=== PATIENT | female | born 1945 | race Caucasian/White ===

== ENCOUNTER 2017-07-03 12:14 | Observation (INO) | payer MEDICARE, OTHER ==
[2017-07-03] VITALS (8 sets, daily range): BP systolic 114–155; BP diastolic 54–74; PULSE 67–80; RESP 14–19; TEMP 97.7–98.5; O2SAT 93–99
[~2017-07-03] VITALS: Ht 161.3 cm; Wt 90.9 kg
[~2017-07-03 12:14] MED LIST: ASPI325T PO; BISO5TAB5 PO; CITA10TA4 PO; ENOX40P SQ; LEVO75TA3 PO; LORTA5 PO; NEXI20CA PO; PREN0.01 PO; RANI150T PO; VITA100020 IM; Z.0.COMMODE-3:1; Z.0.CPM; Z.0.WALKERFRONT
[2017-07-03 13:17] LABS: AUTOMATED NEUTROPHIL # 12.5 TH/MM3 (1.8-7.7); BASOPHIL # 0.1 TH/MM3 (0-0.2); BASOPHIL % 0.6 % (0.0-2.0); EOSINOPHIL # 0.1 TH/MM3 (0-0.4); EOSINOPHIL % 0.6 % (0.0-4.0); HEMATOCRIT 39.9 % (35.0-46.0); HEMOGLOBIN 13.5 GM/DL (11.6-15.3); LYMPH % 11.8 % (9.0-44.0); LYMPHOCYTE # 1.8 TH/MM3 (1.0-4.8); MEAN CELL VOLUME 87.2 FL (80.0-100.0); MEAN CORPUSCULAR HEMOGLOBIN 29.6 PG (27.0-34.0); MEAN CORPUSCULAR HGB CONC 33.9 % (32.0-36.0); MONO % 4.8 % (0.0-8.0); MONOCYTE # 0.7 TH/MM3 (0-0.9); NEUT % 82.2 % (16.0-70.0); PLATELET COUNT 261 TH/MM3 (150-450); RED BLOOD COUNT 4.57 MIL/MM3 (4.00-5.30); WHITE BLOOD COUNT 15.2 TH/MM3 (4.0-11.0)
[2017-07-03] MEDS ORDERED: CITA20TA4 PO (13:17)
[2017-07-03] MEDS ORDERED: LEVO75TA3 PO (13:17)
[2017-07-03] MEDS ORDERED: BISO5TAB5 PO (13:17)
[2017-07-03] MEDS ORDERED: LIOT5TAB3 (13:17)
[2017-07-03] MEDS ORDERED: PRED10 PO (13:17)
[2017-07-03] MEDS ORDERED: MONT10TA4 PO (13:17)
[2017-07-03] MEDS ORDERED: CLON0.5T PO (13:17)
[2017-07-03] MEDS ORDERED: CIPR500T2 PO (13:17)
[2017-07-03] MEDS ORDERED: XARE15TA PO (13:17)
[2017-07-03 13:27] LABS: INTERNATIONAL NORMALIZED RATIO 1.4 RATIO
[2017-07-03] MEDS ORDERED: ASPIRIN 81 MG CHEW TAB CHEW ONE (13:30)
[2017-07-03 13:32] LABS: BICARBONATE 29.7 MEQ/L (21.0-32.0); BLOOD UREA NITROGEN 21 MG/DL (7-18); CALCIUM 9.1 MG/DL (8.5-10.1); CHLORIDE 103 MEQ/L (98-107); CREATININE 1.16 MG/DL (0.50-1.00); GLOMERULAR FILTRATION RATE 46 ML/MIN (>89); GLUCOSE,RANDOM 145 MG/DL (74-106); MAGNESIUM 2.3 MG/DL (1.5-2.5); SODIUM (NA) 138 MEQ/L (136-145)
[2017-07-03 13:33] LABS: PROTHROMBIN TIME - PATIENT 14.3 SEC (9.8-11.6)
[2017-07-03 13:36] LABS: TROPONIN I LESS THAN 0.02 NG/ML (0.02-0.05)
--- NOTE | 2017-07-03 13:37 | PD ---
HPI Chief Complaint: Chest Pain Time Seen by Provider: 13:16 Travel History International Travel<30 days: Yes Contact w/Intl Traveler<30days: Yes Name of Country Traveled to: [place] Traveled to known affect area: No History of Present Illness HPI Patient is a 72 year old female who comes in complaining of left sided chest pain. She says it started this morning around 3AM. She says she vomited and felt a sharp pain to the left side of her chest. She says the pain has eased somewhat, but is still present. She says she has never felt pain like this. She says that laying still and resting has helped with the pain. She has history of PE diagnosed a few weeks ago and is taking Xarelto. She says this pain feels different then when she was diagnosed with the clot. She reports some shortness of breath associated with the pain. Severity is moderate. PFSH Past Medical History Hx Anticoagulant Therapy: Yes (Xarelto) Blood Disorders: Yes Anxiety: Yes Cancer: No Cardiovascular Problems: Yes (HTN) Diabetes: No Deep Vein Thrombosis: Yes Endocrine: No Genitourinary: No Hepatitis: No Hiatal Hernia: No Hypertension: Yes Immune Disorder: No Medical other: No Musculoskeletal: Yes (ARTHRITIS ) Neurologic: Yes (HX OF MIGRAINES--ALLERGY RELATED, OCCASIONAL VERTIGO) Psychiatric: No Reproductive: No Respiratory: Yes (PE) Thyroid Disease: Yes (HYPO) Tetanus Vaccination: Unknown Influenza Vaccination: Yes Past Surgical History Abdominal Surgery: Yes (CHOLECYSTECTOMY) AICD: No Gynecologic Surgery: Yes (LAPAROSCOPY) Joint Replacement: No Pacemaker: No Other Surgery: Yes Social History Alcohol Use: No Tobacco Use: No Substance Use: No Allergies-Medications (Allergen,Severity, Reaction): Coded Allergies: cefaclor (Unverified Allergy, Severe, ANAPHYLACTIC SHOCK, 07/03/17) Reported Meds & Prescriptions Reported Meds & Active Scripts Active Reported Ciprofloxacin (Ciprofloxacin HCl) 500 Mg Tab 500 Mg PO BID Bisoprolol (Bisoprolol Fumarate) 5 Mg Tab 2.5 Mg PO DAILY Citalopram (Citalopram Hydrobromide) 20 Mg Tab 20 Mg PO DAILY Montelukast (Montelukast Sodium) 10 Mg Tab 10 Mg PO HS Levothyroxine (Levothyroxine Sodium) 75 Mcg Tab 75 Mcg PO DAILY Clonazepam 0.5 Mg Tab 0.5 Mg PO HS Xarelto (Rivaroxaban) 15 Mg Tab 15 Mg PO Q12HR Liothyronine (Liothyronine Sodium) 5 Mcg Tab 5 Mcg DAILY Prednisone 10 Mg Tab 10 Mg PO DAILY Review of Systems Except as stated in HPI: all other systems reviewed are Neg General / Constitutional: No: Fever, Chills HENT: No: Headaches, Lightheadedness Cardiovascular: Positive: Chest Pain or Discomfort Respiratory: Positive: Shortness of Breath, No: Cough Gastrointestinal: Positive: Nausea, Vomiting, No: Abdominal Pain Musculoskeletal: No: Myalgias, Edema Skin: No Rash, No Change in Pigmentation Neurologic: No: Weakness, Dizziness Physical Exam Narrative GENERAL: Awake and alert, in no acute distress. SKIN: Focused skin assessment warm/dry. Ecchymosis to the right pinto (old). HEAD: Atraumatic. Normocephalic. EYES: Pupils equal and round. No scleral icterus. EOMI. ENT: Mucous membranes pink and moist. NECK: Trachea midline. No JVD. CARDIOVASCULAR: Regular rate and rhythm. No murmur appreciated. RESPIRATORY: No accessory muscle use. Clear to auscultation. Breath sounds equal bilaterally. GASTROINTESTINAL: Abdomen soft, non-tender, nondistended. MUSCULOSKELETAL: No obvious deformities. No clubbing. No cyanosis. No edema. NEUROLOGICAL: Awake and alert. No obvious cranial nerve deficits. Motor grossly within normal limits. Normal speech. PSYCHIATRIC: Appropriate mood and affect; insight and judgment normal. Data Data Last Documented VS Vital Signs Date Time Temp Pulse Resp B/P (MAP) Pulse Ox O2 Delivery O2 Flow Rate FiO2 07/03/17 13:20 76 19 128/74 (92) 96 Room Air 07/03/17 12:17 98.2 Orders Orders Electrocardiogram (07/03/17 12:36) Basic Metabolic Panel (Bmp) (07/03/17 12:36) Ckmb (Isoenzyme) Profile (07/03/17 12:36) Complete Blood Count With Diff (07/03/17 12:36) Magnesium (Mg) (07/03/17 12:36) Prothrombin Time / Inr (Pt) (07/03/17 12:36) Act Partial Throm Time (Ptt) (07/03/17 12:36) Troponin I (07/03/17 12:36) Chest, Pa & Lat (07/03/17 12:36) Ct Pulmonary Angiogram (07/03/17 13:24) Aspirin Chew (Aspirin Chew) (07/03/17 13:30) Iohexol 350 Inj (Omnipaque 350 Inj) (07/03/17 15:28) Admit Order (Ed Use Only) (07/03/17 ) Labs Laboratory Tests Test 07/03/17 12:26 White Blood Count 15.2 TH/MM3 Red Blood Count 4.57 MIL/MM3 Hemoglobin 13.5 GM/DL Hematocrit 39.9 % Mean Corpuscular Volume 87.2 FL Mean Corpuscular Hemoglobin 29.6 PG Mean Corpuscular Hemoglobin Concent 33.9 % Red Cell Distribution Width 14.0 % Platelet Count 261 TH/MM3 Mean Platelet Volume 8.0 FL Neutrophils (%) (Auto) 82.2 % Lymphocytes (%) (Auto) 11.8 % Monocytes (%) (Auto) 4.8 % Eosinophils (%) (Auto) 0.6 % Basophils (%) (Auto) 0.6 % Neutrophils # (Auto) 12.5 TH/MM3 Lymphocytes # (Auto) 1.8 TH/MM3 Monocytes # (Auto) 0.7 TH/MM3 Eosinophils # (Auto) 0.1 TH/MM3 Basophils # (Auto) 0.1 TH/MM3 CBC Comment DIFF FINAL Differential Comment Prothrombin Time 14.3 SEC Prothromb Time International Ratio 1.4 RATIO Activated Partial Thromboplast Time 30.1 SEC Blood Urea Nitrogen 21 MG/DL Creatinine 1.16 MG/DL Random Glucose 145 MG/DL Calcium Level 9.1 MG/DL Magnesium Level 2.3 MG/DL Sodium Level 138 MEQ/L Potassium Level 4.2 MEQ/L Chloride Level 103 MEQ/L Carbon Dioxide Level 29.7 MEQ/L Anion Gap 5 MEQ/L Estimat Glomerular Filtration Rate 46 ML/MIN Total Creatine Kinase 83 U/L Troponin I LESS THAN 0.02 NG/ML MDM Medical Decision Making Medical Screen Exam Complete: Yes Emergency Medical Condition: Yes Medical Record Reviewed: Yes Interpretation(s) ECG shows NSR, no ST elevation or depression Differential Diagnosis ACS vs NSTEMI vs STEMI vs PE Narrative Course Is a 72-year-old female who comes in complaining of left-sided chest pain. Exam shows no acute abnormalities. IV established, labs sent. Patient connected to the groundwater monitoring technician. Labs including first troponin are negative. CTA of the chest performed shows no evidence of PE. Patient was given an aspirin. She be placed in chest pain center for further management. Last [address] Angiography 07/03/17 1324 Signed Impressions: Service Date/Time: June 15:23 - CONCLUSION: 1. No evidence of pulmonary embolism. 2. Mild cardiomegaly. 3. Minimal scattered bibasilar atelectasis. Bhavesh Noe MD Chest X-Ray 07/03/17 1236 Signed Impressions: Service Date/Time: June 13:55 - CONCLUSION: Mild chronic interstitial changes. No acute abnormality. Terrence Henry MD Diagnosis Primary Impression: Chest pain Qualified Codes: R07.9 - Chest pain, unspecified Admitting Information Admitting Physician Requests: Kaity Barker MD Jul 03, 2017 13:36
[2017-07-03] MEDS ORDERED: IOHEXOL 350 MG/ML 10 ML VIAL (for RAD DIAG) IVCONTRAST ONE (15:28)
--- NOTE | 2017-07-03 15:44 | RADRPT ---
EXAM DATE/TIME: 07/03/2017 15:23 [facility] COMPARISON: No previous studies available for comparison. INDICATIONS : Chest pain and shortness of breath with history of pulmonary embolism. IV CONTRAST: 68 cc Omnipaque 350 (iohexol) IV RADIATION DOSE: 19.01 CTDIvol (mGy) MEDICAL HISTORY : Hyperparathyroidism. Pulmonary embolus SURGICAL HISTORY : None. ENCOUNTER: Initial ACUITY: 1 day PAIN SCALE: 5/10 LOCATION: Bilateral chest TECHNIQUE: Volumetric scanning of the chest was performed using a pulmonary embolism protocol MIP images were re constructed. Using automated exposure control and adjustment of the mA and/or kV according to patien t size, radiation dose was kept as low as reasonably achievable to obtain optimal diagnostic quality images. DICOM format image data is available electronically for review and comparison. Follow-up recommendations for detected pulmonary nodules are based at a minimum on nodule size and pa tient risk factors according to Fleischner Society Guidelines. FINDINGS: PULMONARY ARTERIES: No filling defects are seen in the pulmonary arteries through the segmental level. LUNGS: Minimal scattered bibasilar atelectasis is noted. There is no consolidation or pneumothorax . No con cerning pulmonary nodule is visualized. PLEURAE: There is no pleural thickening or pleural effusion. MEDIASTINUM: There is good visualization of the great vessels of the middle mediastinum. No evidence of mediastin al or hilar adenopathy/mass. Mild cardiomegaly. MUSCULOSKELETAL: Within normal limits for patient age. MISCELLANEOUS: The visualized upper abdominal organs demonstrate no acute abnormality. CONCLUSION: 1. No evidence of pulmonary embolism. 2. Mild cardiomegaly. 3. Minimal scattered bibasilar atelectasis. Bhavesh Noe MD on July 03, 2017 at 15:39 Board Certified Radiologist. This report was verified electronically.
--- NOTE | 2017-07-03 16:01 | RADRPT ---
EXAM DATE/TIME: 07/03/2017 13:55 [facility] COMPARISON: KNEE LEFT LTD (1 OR 2VWS), July 27, 2014, 14:58. INDICATIONS : Chest pain. MEDICAL HISTORY : Hypertension. SURGICAL HISTORY : None. ENCOUNTER: Initial ACUITY: 1 day PAIN SCORE: 0/10 LOCATION: Bilateral upper chest FINDINGS: The heart is normal in size. There mild chronic appearing interstitial changes. No pneumothorax is se en. The osseous structures are grossly intact. CONCLUSION: Mild chronic interstitial changes. No acute abnormality. Terrence Henry MD on July 03, 2017 at 15:58 Board Certified Radiologist. This report was verified electronically.
[2017-07-03] MEDS ORDERED: NITROGLYCERIN 0.4 MG SL 25 TABS/BTL SL PRN (17:15)
[2017-07-03] MEDS ORDERED: ACETAMINOPHEN 500 MG CPLT PO PRN (17:15)
[2017-07-03] MEDS ORDERED: SODIUM CHLORIDE 0.9% FLUSH 10 ML FLUSH IV FLUSH PRN (17:15)
[2017-07-03] MEDS ORDERED: ONDANSETRON HCL 4 MG/2 ML VIAL IV PUSH PRN (17:15)
[2017-07-03 19:11] LABS: TROPONIN I LESS THAN 0.02 NG/ML (0.02-0.05)
[2017-07-03] MEDS ORDERED: MONTELUKAST SODIUM 10 MG TAB PO SCH (21:00)
[2017-07-03] MEDS: RIVAROXABAN 15 MG TAB PO SCH (22:05)
[2017-07-03] MEDS: SODIUM CHLORIDE 0.9% FLUSH 10 ML FLUSH IV FLUSH SCH (22:06)
[2017-07-04 00:23] LABS: TROPONIN I LESS THAN 0.02 NG/ML (0.02-0.05)
[2017-07-04 04:47] VITALS: BP 118/62; PULSE 58; RESP 18; TEMP 98.8; O2SAT 98
[2017-07-04] MEDS ORDERED: LEVOTHYROXINE SODIUM 75 MCG TAB PO SCH (06:00)
[2017-07-04 07:43] VITALS: PULSE 66
--- NOTE | 2017-07-04 07:44 | HHI.HP ---
HPI Primary Care Physician Luz Sánchez D.O. Chief Complaint Chest pain History of Present Illness 72 year old female with history of HTN and currently being treated for PE ( diagnoses on 06/22/16) presents to ER for further evaluation of chest pain. Onset morning. Location substernal. Characterized as sharp. Severity 4- 5/10. No radiation. No associated symptoms of nausea, vomiting, dyspnea, or diaphoreses. Taking deep breath made pain worse. No particular movement made pain better or worse. No known precipitating or relieving factors. Duration constant all day, currently reports mild discomfort with deep breathing, otherwise chest pain free. Diagnosed with PE over one week ago. PE findings came after a fall, developing a large bruise right calf, denies any known DVTs but CT identified PE. Review of Systems General: No fatigue,weakness, fever, chills, or recent illness change in appetite. Has been her general state health. HEENT: No CINTRON, no vision changes, no nasal congestion or drainage, no dysphasia CV: As stated above. No CP, pressure, palpitations, intermittent leg pain, dizziness RESP: No SOB, cough, wheeze, or recent URI. Taking Xarelto PE diagnoses end of last month. GI: No nausea, vomiting, bowel changes, diarrhea, constipation, pain, distention , melena, blood in the stool. No change in appetite, no unintentional weight gain or weight loss. : No dysuria, urgency, frequency EXT: No lower leg edema, no paraesthesias, current large healing bruise to right lower extremity MS: No discomfort or change in ROM. Recent fall one month ago, injury right knee and bruised right lower extremity NEURO: No change in memory, difficulty with balance, LOC, motor/sensory deficits PSYCH: No anxiety, depression SKIN: No rashes, no concerning lesions Past Family Social History Allergies: Coded Allergies: cefaclor (Unverified Allergy, Severe, ANAPHYLACTIC SHOCK, 07/03/17) Past Medical History PE, hypertension, hypothyroidism Past Surgical History Cholecystectomy Reported Medications Reported Meds & Active Scripts Active Reported Ciprofloxacin (Ciprofloxacin HCl) 500 Mg Tab 500 Mg PO BID Bisoprolol (Bisoprolol Fumarate) 5 Mg Tab 2.5 Mg PO DAILY Citalopram (Citalopram Hydrobromide) 20 Mg Tab 20 Mg PO DAILY Montelukast (Montelukast Sodium) 10 Mg Tab 10 Mg PO HS Levothyroxine (Levothyroxine Sodium) 75 Mcg Tab 75 Mcg PO DAILY Clonazepam 0.5 Mg Tab 0.5 Mg PO HS Xarelto (Rivaroxaban) 15 Mg Tab 15 Mg PO Q12HR Liothyronine (Liothyronine Sodium) 5 Mcg Tab 5 Mcg DAILY Prednisone 10 Mg Tab 10 Mg PO DAILY Active Ordered Medications Current Medications Medications (Trade) Dose Ordered Sig/Fernando Route Start Time Stop Time Status Last Admin (NS Flush) 2 ml UNSCH PRN IV FLUSH 07/03/17 17:15 (NS Flush) 2 ml BID IV FLUSH 07/03/17 21:00 07/03/17 22:06 (Tylenol) 500 mg Q4H PRN PO 07/03/17 17:15 07/03/17 22:05 (Zofran Inj) 4 mg Q6H PRN IV PUSH 07/03/17 17:15 (Nitrostat Sl) 0.4 mg Q5M PRN SL 07/03/17 17:15 07/03/17 19:05 (Synthroid) 75 mcg DAILY@0600 PO 07/04/17 06:00 07/04/17 06:13 (Singulair) 10 mg HS PO 07/03/17 21:00 07/03/17 22:06 (Xarelto) 15 mg Q12HR PO 07/03/17 21:00 07/03/17 22:05 Social History Known hypertension. No known coronary artery disease, hyperlipidemia, or diabetes. Lifelong nonsmoker. Denies any alcohol or illegal drug use. Endorses dietary lifestyle. . Owns a travel agency. Past cardiac testing No recent cardiac testing. Remote chemical stress test 4 years ago reportedly unremarkable. Physical Exam Vital Signs Vital Signs Date Time Temp Pulse Resp B/P (MAP) Pulse Ox O2 Delivery O2 Flow Rate FiO2 07/04/17 07:43 66 07/04/17 04:47 98.8 58 18 118/62 (80) 98 07/04/17 00:44 21 07/03/17 23:50 98.5 68 18 114/54 (74) 98 07/03/17 23:05 18 07/03/17 23:00 67 07/03/17 21:03 98.4 74 18 124/60 (81) 99 07/03/17 18:55 97.7 71 18 131/63 (85) 97 07/03/17 17:52 71 15 119/67 (84) 96 07/03/17 17:37 71 16 119/67 (84) 96 Room Air 07/03/17 13:20 76 19 128/74 (92) 96 Room Air 07/03/17 13:09 19 Room Air 07/03/17 12:17 98.2 80 14 155/73 (100) 93 Physical Exam GENERAL: Alert WN, WD, NAD, pleasant, obese female HEAD: NC, AT EYES: Sclera clear, conjunctiva without injection, pupils equal and round ENT: Mucous membranes pink and moist CV: RRR, without murmur, rub, gallop, no JVD, S1-S2 no S3-S4. Chest wall nontender with palpation. RESP: Clear lungs throughout bilateral, no crackles, wheeze, rhonchi, symmetrical chest rise, nonlabored, able to speak in full sentences ABD: Soft, NT, ND, no masses, positive bowel tones EXT: Pulses +24, no dependent edema, right lower extremity ecchymotic knee to ankle, nontender to palpation MS: Normal tone 4 extremities, no obvious deformities, full range of motion NEURO: CN II through CN XII grossly intact, motor strength 5/5, gait WNL PSYCH: A+O 3, pleasant affect, appropriate speech, mood, insight and judgment SKIN: Normal turgor, normal texture, no lesions, no rashes, brisk cap refill, even hair distribution Laboratory Laboratory Tests Test 07/03/17 12:26 07/03/17 18:35 07/03/17 23:40 White Blood Count 15.2 Red Blood Count 4.57 Hemoglobin 13.5 Hematocrit 39.9 Mean Corpuscular Volume 87.2 Mean Corpuscular Hemoglobin 29.6 Mean Corpuscular Hemoglobin Concent 33.9 Red Cell Distribution Width 14.0 Platelet Count 261 Mean Platelet Volume 8.0 Neutrophils (%) (Auto) 82.2 Lymphocytes (%) (Auto) 11.8 Monocytes (%) (Auto) 4.8 Eosinophils (%) (Auto) 0.6 Basophils (%) (Auto) 0.6 Neutrophils # (Auto) 12.5 Lymphocytes # (Auto) 1.8 Monocytes # (Auto) 0.7 Eosinophils # (Auto) 0.1 Basophils # (Auto) 0.1 CBC Comment DIFF FINAL Differential Comment Prothrombin Time 14.3 Prothromb Time International Ratio 1.4 Activated Partial Thromboplast Time 30.1 Blood Urea Nitrogen 21 Creatinine 1.16 Random Glucose 145 Calcium Level 9.1 Magnesium Level 2.3 Sodium Level 138 Potassium Level 4.2 Chloride Level 103 Carbon Dioxide Level 29.7 Anion Gap 5 Estimat Glomerular Filtration Rate 46 Total Creatine Kinase 83 75 60 Troponin I LESS THAN 0.02 LESS THAN 0.02 LESS THAN 0.02 Result Diagram: 07/03/17 1226 07/03/17 1226 Imaging Last [address] Angiography 07/03/17 1324 Signed Impressions: Service Date/Time: June 15:23 - CONCLUSION: 1. No evidence of pulmonary embolism. 2. Mild cardiomegaly. 3. Minimal scattered bibasilar atelectasis. Bhavesh Noe MD Chest X-Ray 07/03/17 1236 Signed Impressions: Service Date/Time: June 13:55 - CONCLUSION: Mild chronic interstitial changes. No acute abnormality. Terrence Henry MD Course EKG Normal sinus rhythm, normal axis, no ST or T-segment changes Caprini VTE Risk Assessment Caprini VTE Risk Assessment: Mod/High Risk (score >= 2) Caprini Risk Assessment Model Point Value = 1 Point Value = 2 Point Value = 3 Point Value = 5 Age 41-60 Minor surgery BMI > 25 kg/m2 Swollen legs Varicose veins or History of unexplained or recurrent spontaneous Oral contraceptives or hormone replacement Sepsis (< 1 month) Serious lung disease, including pneumonia (< 1 month) Abnormal pulmonary function Acute myocardial infarction Congestive heart failure (< 1 month) History of inflammatory bowel disease Medical patient at bed rest Age 61-74 Arthroscopic surgery Major open surgery (> 45 min) Laparoscopic surgery (> 45 min) Malignancy Confined to bed (> 72 hours) Immobilizing plaster cast Central venous access Age >= 75 History of VTE Family history of VTE Factor V Leiden Prothrombin [id number] Lupus anticoagulant Anticardiolipin antibodies Elevated serum homocysteine Heparin-induced thrombocytopenia Other congenital or acquired thrombophilia Stroke (< 1 month) Elective arthroplasty Hip, pelvis, or leg fracture Acute spinal cord injury (< 1 month) Prophylaxis Regimen Total Risk Factor Score Risk Level Prophylaxis Regimen 0-1 Low Early ambulation 2 Moderate Order ONE of the following: *Sequential Compression Device (SCD) *Heparin 5000 units SQ BID 3-4 Higher Order ONE of the following medications: *Heparin 5000 units SQ TID *Enoxaparin/Lovenox 40 mg SQ daily (WT < 150 kg, CrCl > 30 mL/min) *Enoxaparin/Lovenox 30 mg SQ daily (WT < 150 kg, CrCl > 10-29 mL/min) *Enoxaparin/Lovenox 30 mg SQ BID (WT < 150 kg, CrCl > 30 mL/min) AND/OR *Sequential Compression Device (SCD) 5 or more Highest Order ONE of the following medications: *Heparin 5000 units SQ TID (Preferred with Epidurals) *Enoxaparin/Lovenox 40 mg SQ daily (WT < 150 kg, CrCl > 30 mL/min) *Enoxaparin/Lovenox 30 mg SQ daily (WT < 150 kg, CrCl > 10-29 mL/min) *Enoxaparin/Lovenox 30 mg SQ BID (WT < 150 kg, CrCl > 30 mL/min) AND *Sequential Compression Device (SCD) Assessment and Plan Assessment and Plan #1 Atypical chest pain-admitted chest pain center. Ruled out with 3 sets of EKGs, cardiac enzymes, and monitored on telemetry overnight. Evaluated by Dr. Grant Avila. Proceed with exercise stress testing this a.m. Unremarkable, plans discharge home with follow-up with PCP. Patient grew care. #2 History of PE-CT pulmonary angiogram completed in ER identifying any current pulmonary emboli. Continues Xalerto and follow-up appointments with PCP as previously instructed. Surekha Saldaña Jul 04, 2017 07:44
[2017-07-04 08:25] VITALS: BP 148/80; PULSE 72; RESP 20; TEMP 97.8; O2SAT 98
[2017-07-04] MEDS: SODIUM CHLORIDE 0.9% FLUSH 10 ML FLUSH IV FLUSH SCH (08:36)
[2017-07-04] MEDS: RIVAROXABAN 15 MG TAB PO SCH (08:36)
--- NOTE | 2017-07-04 10:17 | HHI.DCPOC ---
Discharge Care Plan Diagnosis: (1) Atypical chest pain Goals to Promote Your Health * To prevent worsening of your condition and complications * To maintain your health at the optimal level Directions to Meet Your Goals Take your medications as prescribed Follow your dietary instruction Follow activity as directed Keep your appointments as scheduled Take your immunizations and boosters as scheduled If your symptoms worsen call your PCP, if no PCP go to Urgent Care Center or Emergency Room Smoking is Dangerous to Your Health. Avoid second hand smoke Call the 24-hour hour crisis hotline for domestic abuse at Surekha Saldaña Jul 04, 2017 10:17
--- NOTE | 2017-07-04 16:14 | EKG ---
Date Performed: 07/04/2017 Time Performed: 02:40:53 PTAGE: 72 years EKG: Sinus rhythm ABNORMAL ECG PREVIOUS TRACING : 07/03/2017 19.02 DOCTOR: Grant Avila Interpretating Date/Time 07/04/2017 16:13:35
--- NOTE | 2017-07-04 16:19 | EKG ---
Date Performed: 07/03/2017 Time Performed: 19:02:25 PTAGE: 72 years EKG: Sinus rhythm NORMAL ECG PREVIOUS TRACING : 07/03/2017 12.42 Since previous tracing, no significant change noted DOCTOR: Grant Avila Interpretating Date/Time 07/04/2017 16:17:40
--- NOTE | 2017-07-04 16:22 | EKG ---
Date Performed: 07/03/2017 Time Performed: 12:42:51 PTAGE: 72 years EKG: Sinus rhythm NORMAL ECG PREVIOUS TRACING : 07/18/2014 14.01 Since previous tracing, no significant change noted DOCTOR: Grant Avila Interpretating Date/Time 07/04/2017 16:19:51
--- NOTE | 2017-07-04 16:29 | TR ---
Date Performed: 07/04/2017 Time Performed: 09:47:40 DOCTOR: Grant Avila DRUG LIST: CLINICAL HISTORY: REASON FOR TEST: REASON FOR ENDING: OBSERVATION: CONCLUSION: Arpan procotol completed. Stopped sec to leg fatigue and target heart rate of 84%. M aximum PD=038 Target HR Achieved=85.0% Maximum ZE=144/80 Total Exercise Time=7:00. No reprod chest pa in. No ectopy. Normal bp response. No st t segment changes to sugg ischemia. Good exercise tolerance. Recovery quick and unremarkable. COMMENTS: Patient exercised using the Arpan protocol. No electrocardiographic changes were seen to suggest ischemia. Hemodynamic response to exercise was normal. No significant arrhythmia was prese nt.
== END 2017-07-04 11:38 | disposition home or self-care (01) ==
LOC: NEPC 12:14 → NEDA 16:18 → NEPHCDU 18:10
PROVIDERS: ADMIT Internal Medicine Cardiovascular Disease; ATTEND Internal Medicine Cardiovascular Disease
DX: R07.89 Other chest pain (principal); R06.02 Shortness of breath; S80.11XA Contusion of right lower leg, initial encounter; I11.9 Hypertensive heart disease without heart failure; E03.9 Hypothyroidism, unspecified; R94.31 Abnormal electrocardiogram [ECG] [EKG]; R11.10 Vomiting, unspecified; F41.9 Anxiety disorder, unspecified; M19.90 Unspecified osteoarthritis, unspecified site; Z79.899 Other long term (current) drug therapy; Z79.01 Long term (current) use of anticoagulants; Z86.711 Personal history of pulmonary embolism; W19.XXXA Unspecified fall, initial encounter
CPT/HCPCS: 71046; 71275; 80048; 82550; 83735; 84484; 85025; 85610; 85730; 93005; 93017; 99285; G0378; Q9967